=== PATIENT | male | born 1970 | race Two or more races ===

== ENCOUNTER 2022-05-07 14:54 | Emergency (ER) | payer MEDICAID, OTHER ==
[~2022-05-07] VITALS: Ht 177.8 cm; Wt 90.0 kg
[2022-05-07 16:13] LABS: Basophils # (auto) 0.1 10 ^3/uL (0-0.2); Basophils % (auto) 1.1 % (0.0-2.0); Eosinophils # (auto) 0.1 10 ^3/uL (0-0.8); Eosinophils % (auto) 1.3 % (0.0-7.0); Hematocrit 47.6 % (41.0-53.0); Hemoglobin 16.5 g/dL (13.5-17.5); Lymphocytes # (auto) 1.6 10 ^3/uL (0.4-5.4); Lymphocytes % (auto) 25.9 % (10.0-50.0); Mean Corpuscular Hemoglobin 35.5 pg (28.0-32.0); Mean Corpuscular Hgb Conc. 34.8 g/dL (32.0-36.0); Monocytes # (auto) 0.5 10 ^3/uL (0-1.3); Monocytes % (auto) 8.5 % (0.0-12.0); Neutrophils # (auto) 3.8 10 ^3/uL (1.6-8.6); Neutrophils % (auto) 63.2 % (37.0-80.0); Nucleated Red Blood Cells % 0.1 %; Red Blood Cells 4.66 10^6/uL (4.5-5.90)
[2022-05-07 16:26] LABS: Albumin 3.2 g/dL (3.4-5.0); BUN/Creatinine Ratio 7.3; Calcium 8.3 mg/dL (8.5-10.1); Potassium 3.5 mmol/L (3.5-5.1)
[2022-05-07 16:29] LABS: Bilirubin, Total 1.6 mg/dL (0.2-1.0); Total Protein 7.6 g/dL (6.4-8.2)
[2022-05-07] MEDS ORDERED: THIAMINE 100mg/ml INJ (200mg/2ml VIAL) IV ONE (23:30)
[2022-05-07] MEDS ORDERED: SODIUM CHLORIDE 0.9% 1,000 ML IV ONE (23:30)
[2022-05-07] MEDS ORDERED: cloNIDine HCL 0.1 MG TAB PO ONE (23:45)
[2022-05-08 03:40] VITALS: BP 159/95
== END 2022-05-08 03:47 | disposition home or self-care (01) ==
LOC: ER 14:54
DX: I10 Essential (primary) hypertension (principal); E11.65 Type 2 diabetes mellitus with hyperglycemia; F10.10 Alcohol abuse, uncomplicated; Y90.8 Blood alcohol level of 240 mg/100 ml or more
CPT/HCPCS: 36415; 80053; 82962; 84484; 85025; 93005; 96361; 96374; 99284; J3411; J7030

== ENCOUNTER 2023-01-14 12:37 | Emergency (ER) | payer MEDICAID ==
[~2023-01-14] VITALS: Ht 177.8 cm; Wt 90.0 kg
[2023-01-14] MEDS ORDERED: FUROSEMIDE 40 MG/4 ML VIAL IV ONE (13:30)
[2023-01-14 13:42] LABS: Eosinophils # (auto) 0.1 10 ^3/uL (0-0.8); Hemoglobin 10.4 g/dL (13.5-17.5)
[2023-01-14 13:43] LABS: Basophils # (auto) 0.1 10 ^3/uL (0-0.2); Basophils % (auto) 1.3 % (0.0-2.0); Eosinophils % (auto) 0.6 % (0.0-7.0); Hematocrit 32.8 % (41.0-53.0); Lymphocytes # (auto) 1.7 10 ^3/uL (0.4-5.4); Lymphocytes % (auto) 20.8 % (10.0-50.0); Mean Corpuscular Hemoglobin 26.1 pg (28.0-32.0); Mean Corpuscular Hgb Conc. 31.6 g/dL (32.0-36.0); Mean Corpuscular Volume 82.6 fL (80.0-100.0); Monocytes # (auto) 0.9 10 ^3/uL (0-1.3); Monocytes % (auto) 10.9 % (0.0-12.0); Neutrophils # (auto) 5.5 10 ^3/uL (1.6-8.6); Neutrophils % (auto) 66.4 % (37.0-80.0); Nucleated Red Blood Cells % 0.2 %; Red Blood Cells 3.97 10^6/uL (4.5-5.90); Red Cell Distribution Width 18.9 % (11.8-14.3); White Blood Cell 8.2 10^3/uL (4.4-10.8)
[2023-01-14 13:54] LABS: INR 1.08 (0.9-1.15)
[2023-01-14 14:09] LABS: Albumin 2.1 g/dL (3.4-5.0); Calcium 8.1 mg/dL (8.5-10.1); Magnesium 1.8 mg/dL (1.6-2.6); Potassium 3.8 mmol/L (3.5-5.1)
[2023-01-14 14:15] LABS: Bilirubin, Total 0.7 mg/dL (0.2-1.0)
[2023-01-14 16:21] VITALS: BP 176/104
[2023-01-14] MEDS ORDERED: FURO1TAB33 PO (17:14)
== END 2023-01-14 18:54 | disposition left against medical advice (07) ==
LOC: ER 12:37
DX: K74.60 Unspecified cirrhosis of liver (principal); R18.8 Other ascites; R14.0 Abdominal distension (gaseous); Z88.6 Allergy status to analgesic agent; Z79.899 Other long term (current) drug therapy
CPT/HCPCS: 36415; 71045; 76705; 80053; 83735; 83880; 84484; 85025; 85610; 85730; 96374; 99285; J1940